=== PATIENT | female | born 1935 | race Caucasian/White ===

== ENCOUNTER → 2017-01-23 | Outpatient (CLI) | payer OTHER ==
[~2017-01-23] MED LIST: ASPIRIN81 M2 PO; CALCIUM + VITA1 EACH PO; CALTRATE 6001 TABLE1 PO; CLEOCIN300 MG PO; FAMOTIDINE40 MG PO; HYDROCODON-ACE1 EAC7 PO; LEVAQUIN750 MG PO; MULTIVITAMIN1 EAC2 PO; PRAVACHOL40 MG PO; TYLENOL REGULA325 MG PO
== END | disposition home or self-care (01) ==
DX: R13.10 Dysphagia, unspecified (principal)
CPT/HCPCS: 92611 GN; G8996 GN; G8997 GN; G8998 GN